=== PATIENT | male | born 1985 | race Caucasian/White ===

== ENCOUNTER 2017-02-19 16:25 | Emergency (ER) | payer OTHER | END 2017-02-19 19:26 | disposition home or self-care (01) | LOC: SED 16:25 | DX: H61.23 Impacted cerumen, bilateral (principal); K08.89 Other specified disorders of teeth and supporting structures; R68.84 Jaw pain; Z86.79 Personal history of other diseases of the circulatory system | CPT/HCPCS: 99282 ==